=== PATIENT | female | born 1950 | race American Indian/Alaskan Native ===

== ENCOUNTER 2019-01-08 05:40 | Day surgery (SDC) | payer MEDICARE ==
[2019-01-08] MEDS ORDERED: TETRACAINE 0.5% OS SCH (06:00)
[2019-01-08] MEDS: MYDRIACYL OS SCH ×3 (06:20→06:30)
[2019-01-08] MEDS: VIGAMOX OS SCH ×3 (06:20→06:30)
[2019-01-08] MEDS: AK-Dilate OS SCH ×3 (06:20→06:30)
[2019-01-08] MEDS ORDERED: VERSED ONE (08:46)
[2019-01-08] MEDS ORDERED: SUBLIMAZE ONE (08:46)
[2019-01-08] MEDS ORDERED: DIAMOX PO NR (09:10)
--- NOTE | 2019-01-08 09:12 | Operative Report ---
Operative Report Operative Report: PATIENT'S NAME: DATE OF : DATE OF SURGERY: 01/08/2019 PREOPERATIVE DIAGNOSIS: Cataract left eye POSTOPERATIVE DIAGNOSIS: Same OPERATIVE PROCEDURE: Phacoemulsification with intraocular lens implantation, left eye SURGEON: Rayne Foreman M.D. RIPSHEAR OPERATOR SURGEON: Chase Lens: [id number] 22.0 D ANESTHESIA: Monitored anesthesia care in combination with topical and intracameral anesthesia because of the established specific risk of reflux, arrhythmias, or anxiety attacks associated with ocular manipulation, as well as the difficulty of the process development technician to manage such potentially catastrophic events while simultaneously attempting to complete the surgical procedure and was deemed necessary for the patient's safety to have an Digital Print Operator present during the procedure whenever possible. An Digital Print Operator was utilized to regulate the intravenous sedation of the patient so the patient was cooperative yet not asleep in order for the patient to successfully maintain fixation of the eye on the operating light of the microscope. COMPLICATIONS: No surgical complications No blood loss. ALLERGIES: Penicillin PROGNOSIS: Excellent INDICATIONS FOR SURGERY: The patient is undergoing surgery in the hopes of eliminating or improving these visual difficulties. PROCEDURE: After arriving at the surgery center, the patient was given topical anesthetic and dilating drops, as noted in the record. The patient was then taken into the operating room and given more anesthetic drops. The eyelids, lashes, and lid margins were scrubbed with Betadine solution, and the patient was draped. The Nurse Digital Print Operator administered IV sedation and monitored the patient during the procedure. The eye was then fixated with a 0.12, and a stab incision was made in the peripheral clear cornea into the anterior chamber. This was made on my left side. Viscoelastic was next used to fill the anterior chamber. The eye was once again fixated with the 0.12 forceps and a keratome was used make an incision in clear cornea peripherally on my right hand side temporally. The capsule forceps were used to open the central anterior capsule and then make a continuous round capsulotomy. Hydrodissection was carried out utilizing a cannula and balanced salt solution to delineate the cortical material from the capsule and the nucleus from the cortical material. The phaco tip was introduced into the eye and used to remove the anterior cortical material in the area of the capsulotomy. Then the phaco tip was buried into the nucleus, and a chopping instrument was introduced into the eye and used to provide countertraction in the nucleus between this instrument and the phaco tip fracturing the nucleus. This procedure was repeated multiple times, providing multiple small segments of the lens, and then the phaco tip was used to remove each of these segments. An I/A tip was then used to remove the remaining cortex. The anterior chamber was refilled with viscoelastic. An one-piece, acrylic intraocular lens was then placed into an inserting cartridge. The tip of the inserting cartridge was introduced into the keratome incision and into the anterior chamber. The implant was gently advanced through the cartridge and into the eye, where it unfolded, and both haptics were placed in the capsular bag, where it centered nicely and appeared to be well fixated. After placement of the intraocular lens, the I~and~A handpiece was placed back into the eye and used to remove the viscoelastic, including viscoelastic that was behind the optic of the intraocular lens. The anterior chamber was then filled with balanced salt solution, and hydration of the wound was used to cause swelling of the wound and more appropriate watertight closure. When the wound was found to be firm, the patient was asked to comment on how bright the light was. If there was no light perception at all or if the light was substantially dimmer than during the rest of the surgery, the amount of fluid in the eye was decompressed to lower the intraocular pressure until the patient could see the bright light again. This was done to avoid any damage or decreased blood flow to the optic nerve. MEDICATIONS APPLIED AT END OF SURGERY: One drop of Pred Forte and Vigamox The patient was given a shield to wear at night and was instructed not to rub or push on the eye. DISCHARGE SUMMARY: The patient was released in stable condition. The patient and those with the patient were given a written sheet of postoperative instructions and counseling on any abnormal laboratory studies. The patient is to see us tomorrow for follow-up in the office and is to call immediately for any difficulties. Rayne Foreman M.D. Date
--- NOTE | 2019-01-08 09:12 | Short Stay Summary ---
Short Stay Documentation Date of service: 01/08/19 - History H&P: obtained from office - Allergies and Medications Current Medications: Allergies Penicillins Allergy (Verified 01/07/19 13:05) Swelling Home Medications Medication Instructions Recorded Confirmed Last Taken Type Anastrozole (Nf) [Arimidex (Nf)] 1 mg PO DAILY 01/07/19 01/08/19 01/07/19 08:00 History Atorvastatin [Lipitor Tab] 40 mg PO DAILY 01/07/19 01/08/19 01/07/19 08:00 History Losartan Potassium [Cozaar] 100 mg PO DAILY 01/07/19 01/08/19 01/07/19 08:00 History Metformin HCl [Fortamet ER] 1,000 mg PO QDAY 01/07/19 01/08/19 01/07/19 08:00 History amLODIPine [Norvasc] 10 mg PO DAILY 01/07/19 01/08/19 01/08/19 05:00 History glipiZIDE [glipiZIDE XL] 10 mg PO DAILY 01/07/19 01/08/19 01/07/19 08:00 History Active Medications Acetazolamide (Diamox) 500 mg PO ONCE ONE Stop: 01/08/19 09:11 Moxifloxacin HCl (Vigamox) 1 drops OS Q5MIN MADAN Stop: 01/08/19 16:00 Last Admin: 01/08/19 06:30 Dose: 1 drops Documented by: Phenylephrine HCl (Ak-Dilate) 1 drops OS Q5MIN MADAN Stop: 01/08/19 16:00 Last Admin: 01/08/19 06:30 Dose: 1 drops Documented by: Prednisolone Acetate (Pred Forte 1%) 1 drops OS ONCE NR Tetracaine HCl (Tetracaine 0.5%) 1 drops OS Q5M MADAN Stop: 01/08/19 16:00 Last Admin: 01/08/19 06:20 Dose: 1 drops Documented by: Tropicamide (Mydriacyl) 1 drops OS Q5MIN MADAN Stop: 01/08/19 16:00 Last Admin: 01/08/19 06:30 Dose: 1 drops Documented by: - Brief post op/procedure progress note Date of procedure: 01/08/19 Pre-op diagnosis: left cataract Post-op diagnosis: same Procedure: Phacoemulsification with intraocular lens insertion left eye Anesthesia: MAC, local Surgeon: SALVADOR HUSAIN Estimated blood loss: none Pathology: none Condition: stable - Disposition Condition at discharge: Good Disposition: DC-01 TO HOME OR SELFCARE - Discharge Diagnoses (1) Cortical age-related cataract of left eye Status: Resolved Short Stay Discharge Plan Follow up with: JUAN R HAYES NP [Primary Care Provider] - 7 Days
[2019-01-08] MEDS ORDERED: PRED FORTE 1% OS NR (10:00)
[2019-01-08 12:08] VITALS: BP 152/74
== END 2019-01-08 10:00 | disposition home or self-care (01) ==
LOC: OR 05:40
DX: H25.012 Cortical age-related cataract, left eye (principal); E78.00 Pure hypercholesterolemia, unspecified; I10 Essential (primary) hypertension; F17.210 Nicotine dependence, cigarettes, uncomplicated; M19.90 Unspecified osteoarthritis, unspecified site; Z80.3 Family history of malignant neoplasm of breast; Z90.710 Acquired absence of both cervix and uterus; Z72.89 Other problems related to lifestyle; Z85.89 Personal history of malignant neoplasm of other organs and systems; Z88.0 Allergy status to penicillin; Z79.899 Other long term (current) drug therapy; Z79.84 Long term (current) use of oral hypoglycemic drugs; Z98.890 Other specified postprocedural states
CPT/HCPCS: 66984; 82962; J2250; J3010; V2632

== ENCOUNTER 2019-02-05 08:17 | Day surgery (SDC) | payer MEDICARE ==
[~2019-02-05 08:17] MED LIST: TETRACAINE 0.5% OD SCH
[2019-02-05] MEDS: AK-Dilate OD SCH ×3 (09:25→09:35)
[2019-02-05] MEDS: VIGAMOX OD SCH ×3 (09:25→09:35)
[2019-02-05] MEDS: MYDRIACYL OD SCH ×3 (09:25→09:35)
--- NOTE | 2019-02-05 09:27 | Anesthesia Consultation ---
Anesthesia Consult and Med Hx Date of service: 02/05/19 - Airway Anesthetic Teeth Evaluation: Dentures ROM Head & Neck: Adequate Mental/Hyoid Distance: Adequate Mallampati Class: Class III Intubation Access Assessment: Possibly Difficult - Pulmonary Exam CTA: Yes - Cardiac Exam Cardiac Exam: RRR - Pre-Operative Health Status ASA Pre-Surgery Classification: ASA3 Proposed Anesthetic Plan: MAC - Pulmonary Hx Smoking: Yes (SINCE AGE 21; 3-4 CIG/DAY) Hx Respiratory Symptoms: No - Cardiovascular System Hx Hypertension: Yes (took amlodipine today) Hx Heart Attack/AMI: No - Central Nervous System CVA: No - Gastrointestinal Hx Gastroesophageal Reflux Disease: Yes (asymptomatic today) - Endocrine Hx Renal Disease: No Hx Liver Disease: No Hx Non-Insulin Dependent Diabetes: Yes - Other Systems Hx Obesity: Yes
--- NOTE | 2019-02-05 09:27 | Anesthesia Day of Surgery ---
Anesthesia Day of Surgery - Day of Surgery Patient Examined: Yes Patient H&P Reviewed: Yes Patient is NPO: Yes
[2019-02-05] MEDS ORDERED: VERSED ONE (10:28)
[2019-02-05] MEDS ORDERED: SUBLIMAZE ONE (10:28)
[2019-02-05] MEDS ORDERED: PRED FORTE 1% OD ONE (10:44)
[2019-02-05] MEDS ORDERED: DIAMOX PO ONE (10:44)
--- NOTE | 2019-02-05 10:45 | Operative Report ---
Operative Report Operative Report: PATIENT'S NAME: DATE OF : DATE OF SURGERY: 02/05/2019 PREOPERATIVE DIAGNOSIS: Cataract right eye POSTOPERATIVE DIAGNOSIS: Same OPERATIVE PROCEDURE: Phacoemulsification with intraocular lens implantation, right eye SURGEON: Rayne Foreman M.D. SUIT ATTENDANT SURGEON: Chase Lens: [id number] 23.0 D ANESTHESIA: Monitored anesthesia care in combination with topical and intracameral anesthesia because of the established specific risk of reflux, arrhythmias, or anxiety attacks associated with ocular manipulation, as well as the difficulty of the senior gl accountant to manage such potentially catastrophic events while simultaneously attempting to complete the surgical procedure and was deemed necessary for the patient's safety to have an Sculpture Conservator present during the procedure whenever possible. An Sculpture Conservator was utilized to regulate the intravenous sedation of the patient so the patient was cooperative yet not asleep in order for the patient to successfully maintain fixation of the eye on the operating light of the microscope. COMPLICATIONS: No surgical complications No blood loss. ALLERGIES: Penicillin PROGNOSIS: Excellent INDICATIONS FOR SURGERY: The patient is undergoing surgery in the hopes of eliminating or improving these visual difficulties. PROCEDURE: After arriving at the surgery center, the patient was given topical anesthetic and dilating drops, as noted in the record. The patient was then taken into the operating room and given more anesthetic drops. The eyelids, lashes, and lid margins were scrubbed with Betadine solution, and the patient was draped. The Nurse Sculpture Conservator administered IV sedation and monitored the patient during the procedure. The eye was then fixated with a 0.12, and a stab incision was made in the peripheral clear cornea into the anterior chamber. This was made on my left side. Viscoelastic was next used to fill the anterior chamber. The eye was once again fixated with the 0.12 forceps and a keratome was used make an incision in clear cornea peripherally on my right hand side temporally. The capsule forceps were used to open the central anterior capsule and then make a continuous round capsulotomy. Hydrodissection was carried out utilizing a cannula and balanced salt solution to delineate the cortical material from the capsule and the nucleus from the cortical material. The phaco tip was introduced into the eye and used to remove the anterior cortical material in the area of the capsulotomy. Then the phaco tip was buried into the nucleus, and a chopping instrument was introduced into the eye and used to provide countertraction in the nucleus between this instrument and the phaco tip fracturing the nucleus. This procedure was repeated multiple times, providing multiple small segments of the lens, and then the phaco tip was used to remove each of these segments. An I/A tip was then used to remove the remaining cortex. The anterior chamber was refilled with viscoelastic. An one-piece, acrylic intraocular lens was then placed into an inserting cartridge. The tip of the inserting cartridge was introduced into the keratome incision and into the anterior chamber. The implant was gently advanced through the cartridge and into the eye, where it unfolded, and both haptics were placed in the capsular bag, where it centered nicely and appeared to be well fixated. After placement of the intraocular lens, the I~and~A handpiece was placed back into the eye and used to remove the viscoelastic, including viscoelastic that was behind the optic of the intraocular lens. The anterior chamber was then filled with balanced salt solution, and hydration of the wound was used to cause swelling of the wound and more appropriate watertight closure. When the wound was found to be firm, the patient was asked to comment on how bright the light was. If there was no light perception at all or if the light was substantially dimmer than during the rest of the surgery, the amount of fluid in the eye was decompressed to lower the intraocular pressure until the patient could see the bright light again. This was done to avoid any damage or decreased blood flow to the optic nerve. MEDICATIONS APPLIED AT END OF SURGERY: One drop of Pred Forte and Vigamox The patient was given a shield to wear at night and was instructed not to rub or push on the eye. DISCHARGE SUMMARY: The patient was released in stable condition. The patient and those with the patient were given a written sheet of postoperative instructions and counseling on any abnormal laboratory studies. The patient is to see us tomorrow for follow-up in the office and is to call immediately for any difficulties. Rayne Foreman M.D. Date
--- NOTE | 2019-02-05 10:46 | Short Stay Summary ---
Short Stay Documentation Date of service: 02/05/19 - History H&P: obtained from office - Allergies and Medications Current Medications: Allergies Penicillins Allergy (Verified 02/04/19 18:28) Swelling Home Medications Medication Instructions Recorded Confirmed Last Taken Type Anastrozole (Nf) [Arimidex (Nf)] 1 mg PO DAILY 01/07/19 02/04/19 01/07/19 08:00 History Atorvastatin [Lipitor Tab] 40 mg PO DAILY 01/07/19 02/04/19 01/07/19 08:00 History Losartan Potassium [Cozaar] 100 mg PO DAILY 01/07/19 02/04/19 01/07/19 08:00 History Metformin HCl [Fortamet ER] 1,000 mg PO QDAY 01/07/19 02/04/19 01/07/19 08:00 History amLODIPine [Norvasc] 10 mg PO DAILY 01/07/19 02/04/19 01/08/19 05:00 History glipiZIDE [glipiZIDE XL] 10 mg PO DAILY 01/07/19 02/04/19 01/07/19 08:00 History Active Medications Moxifloxacin HCl (Vigamox) 1 drops OD Q5MIN MADAN Stop: 02/05/19 23:59 Last Admin: 02/05/19 09:35 Dose: 1 drops Documented by: Phenylephrine HCl (Ak-Dilate) 1 drops OD Q5MIN MADAN Stop: 02/05/19 23:59 Last Admin: 02/05/19 09:35 Dose: 1 drops Documented by: Tetracaine HCl (Tetracaine 0.5%) 1 drops OD Q5M MADAN Stop: 02/05/19 23:59 Last Admin: 02/05/19 09:25 Dose: 1 drops Documented by: Tropicamide (Mydriacyl) 1 drops OD Q5MIN MADAN Stop: 02/05/19 23:59 Last Admin: 02/05/19 09:35 Dose: 1 drops Documented by: - Brief post op/procedure progress note Date of procedure: 02/05/19 Pre-op diagnosis: right cataract Post-op diagnosis: same Procedure: Phacoemulsification with intraocular lens insertion right eye Anesthesia: MAC, local Surgeon: SALVADOR HUSAIN Estimated blood loss: none Pathology: none Condition: stable - Disposition Condition at discharge: Good Disposition: DC-01 TO HOME OR SELFCARE - Discharge Diagnoses (1) Cortical age-related cataract of right eye Status: Resolved Short Stay Discharge Plan Follow up with: FERNY HOLLAND MD [Primary Care Provider] - 7 Days
[2019-02-05 11:34] VITALS: BP 149/77
--- NOTE | 2019-02-05 12:17 | Post Anesthesia Evaluation ---
- Post Anesthesia Evaluation Patient Participated: Yes Airway Patent: Yes Stable Respiratory Function: Yes Nausea/Vomiting: No Temp > 96.8F: Yes Pain Manageable: Yes Adequeate Hydration: Yes Anesthesia Complications: No
[2019-02-05] MEDS ORDERED: PRED FORTE 1% ONE (14:06)
[2019-02-05] MEDS ORDERED: DIAMOX ONE (14:07)
== END 2019-02-05 11:20 | disposition home or self-care (01) ==
LOC: OR 08:17
DX: E11.36 Type 2 diabetes mellitus with diabetic cataract (principal); H25.011 Cortical age-related cataract, right eye; F17.210 Nicotine dependence, cigarettes, uncomplicated; E78.00 Pure hypercholesterolemia, unspecified; I10 Essential (primary) hypertension; K21.9 Gastro-esophageal reflux disease without esophagitis; E66.9 Obesity, unspecified; M19.90 Unspecified osteoarthritis, unspecified site; Z72.89 Other problems related to lifestyle; Z98.890 Other specified postprocedural states; Z85.89 Personal history of malignant neoplasm of other organs and systems; Z88.0 Allergy status to penicillin; Z79.899 Other long term (current) drug therapy; Z79.84 Long term (current) use of oral hypoglycemic drugs; Z98.42 Cataract extraction status, left eye; Z68.32 Body mass index [BMI] 32.0-32.9, adult; Z85.3 Personal history of malignant neoplasm of breast; Z90.710 Acquired absence of both cervix and uterus
CPT/HCPCS: 66984; 82962; J2250; J3010; V2632